=== PATIENT | female | born 1960 | race Caucasian/White ===

== ENCOUNTER 2022-08-01 07:52 | Day surgery (SDC) | payer OTHER ==
[~2022-08-01] VITALS: Ht 160 cm; Wt 77.1 kg
[2022-08-01] MEDS ORDERED: fentaNYL citrate 0.05 MG/ML VIAL ONE (08:43)
[2022-08-01] MEDS ORDERED: diphenhydrAMINE 50 MG/ML VIAL ONE (08:43)
[2022-08-01] MEDS ORDERED: MIDAZOLAM 5 MG/5 ML VIAL ONE (08:43)
[2022-08-01] MEDS ORDERED: MIDAZOLAM 2 MG/2 ML VIAL IVP ONE (09:10)
[2022-08-01] MEDS ORDERED: fentaNYL citrate 0.05 MG/ML VIAL IVP ONE (09:10)
== END 2022-08-01 10:08 | disposition home or self-care (01) ==
LOC: MOR 07:52 → MMU 07:53 → MTU 08:27 → MMU 08:28 → MOR 10:08
PROVIDERS: ATTEND Internal Medicine Gastroenterology
DX: K21.9 Gastro-esophageal reflux disease without esophagitis (principal); K29.70 Gastritis, unspecified, without bleeding; B96.81 Helicobacter pylori [H. pylori] as the cause of diseases classified elsewhere; E78.5 Hyperlipidemia, unspecified; G43.909 Migraine, unspecified, not intractable, without status migrainosus; M19.90 Unspecified osteoarthritis, unspecified site; Z79.899 Other long term (current) drug therapy; Z20.822 Contact with and (suspected) exposure to COVID-19
CPT/HCPCS: J1200; J2250; J3010